=== PATIENT | female | born 1995 | race African-American/Black ===

== ENCOUNTER 2017-01-27 10:28 | Inpatient (IN) ==
[2017-01-27] MEDS: LACTATED RINGERS 1,000 ML IV SCH ×2 (10:48→13:05)
[2017-01-27] MEDS ORDERED: ONDANSETRON 4 MG/2 ML VIAL IV PRN (10:51)
[2017-01-27] MEDS ORDERED: MEPERIDINE 50 MG/1 ML VIAL IV PRN (11:03)
[2017-01-27 11:09] LABS: Basophils % 0.2 % (0.0-0.8); Eosinophils % 0.4 % (0.00-10.9); Hematocrit 40.7 VOL% (35.7-47.0); Hemoglobin 13.8 GM/DL (12.0-16.0); Immature Granulocytes % 0.5 %; Immature Granulocytes Absolute 0.04 #; Lymphocytes # 1.6 10*3/uL (1.4-4.0); Lymphocytes % 20.5 % (21.3-54.2); Mean Corpuscular HGB Conc 33.9 GM/DL (32-36); Mean Corpuscular Hemoglobin 26 PG (27-34); Mean Corpuscular Volume 77.8 FL (87-102); Mean Platelet Volume 10.3 FL (9.6-12.0); Monocytes # 0.4 10*3/uL (0.11-0.8); Monocytes % 4.7 % (1.7-12.7); Neutrophils # 5.9 10*3/uL (1.4-7.4); Neutrophils % 73.7 % (38.7-73.9); Platelet Count 264 T/CUMM (130-400); Red Blood Count 5.23 MC/CUMM (3.8-5.5); Red Cell Distribution Width 15.7 % (9.3-17.3)
[2017-01-27 11:26] LABS: INR 0.9; PT Patient Result 9.7 SECS; Partial Thromboplastin Time 33.5 SECS (0-40)
[2017-01-27 11:29] LABS: Alanine Aminotransferase 14 U/L (13-56); Albumin 2.8 G/DL (3.4-5.0); Alkaline Phosphatase 112 U/L (45-117); Aspartate Amino Transferase 13 U/L (0-37); Bilirubin,Total < 0.39 MG/DL (0.2-1.0); Blood Urea Nitrogen 4 MG/DL (7-18); Glucose 90 MG/DL (74-106); Potassium 3.8 MMOL/L (3.5-5.1); Sodium 136 MMOL/L (136-145); Total Protein 7.6 G/DL (6.4-8.3); Uric Acid 3.9 MG/DL (2.6-6.0)
[2017-01-27] MEDS ORDERED: OXYTOCIN/LR 20 UNIT/1,000 ML BAG IV SCH (12:00)
[2017-01-27] MEDS ORDERED: BUTORPHANOL 1 MG/ML VIAL ONE (13:13)
[2017-01-27] MEDS ORDERED: LIDOCAINE 1% 50 ML VIAL ONE (13:13)
[2017-01-27] MEDS ORDERED: miSOPROStol 200 MCG TABLET ONE (13:14)
--- NOTE | 2017-01-27 13:54 | OB/GYN History & Physical ---
History of Present Illness Chief complaint: labor History of present illness: Ms. White is a 21 year old female presented this morning to L&D with complaints of labor and rupture. 5 cm with rupture and meconium at admission. complicated with trichomonas. No other medical issues or surgeries. Previous delivery uncomplicated. R/B/A to delivery reviewed. Pt willing to proceed. 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 - Constitutional Vitals: Vital Signs Pulse Resp BP Pulse Ox 01/27/17 10:47 120 H 19 141/104 99 General appearance: normal weight - Head Head exam: Present: normal inspection - Eye Eye exam: Present: EOMI Pupils: Present: CHELA - Respiratory Respiratory exam: Present: clear to auscultation bilaterally - Cardiovascular Cardiovascular exam: Present: regular rate and rhythm - GI/Abdominal GI/Abdominal exam: Present: soft, other (FhTs reassuring) Assessment and Plan (1) 39 weeks gestation of Status: Acute Assessment and plan: Anticipate Current Visit: Yes Results - Labs CBC & BMP: 01/27/17 10:55 01/27/17 10:45
--- NOTE | 2017-01-27 13:59 | Event Note ---
DELIVERY NOTE of female infant in cephalic presentation with no anesthesia. Admitted 5 cm at 1100. Weight pending. APGARS of Spontaneous intact placenta. EBL 300 cc. Repair of midline 2nd degree laceration with 3.0 vicryl NICU present. Mom and baby doing well.
[2017-01-27] MEDS ORDERED: ACETAMINOPHEN 325 MG TABLET PO PRN (17:17)
[2017-01-27] MEDS ORDERED: MEASLES/MUMPS/RUBELLA VACCINE 0.5 ML VIAL SUBCUT ONE (17:17)
[2017-01-27] MEDS ORDERED: DIPH/TET/ACEL PERT BOOSTER VACCINE 0.5 ML VIAL IM ONE (17:17)
[2017-01-27] MEDS ORDERED: RHO(D) IMMUNE GLOBULIN 300 MCG SYRINGE IM ONE (17:17)
[2017-01-27] MEDS ORDERED: LANOLIN 50% CREAM 0.3 OZ TUBE TOP PRN (17:17)
[2017-01-27] MEDS ORDERED: WITCH HAZEL PADS 100/JAR TOP PRN (17:17)
[2017-01-27] MEDS ORDERED: BISACODYL 10 MG SUPP RECTAL PRN (17:17)
[2017-01-27] MEDS ORDERED: HYDROCORTISONE 2.5% RECTAL CREAM 30 GM TUBE TOP PRN (17:17)
[2017-01-27] MEDS ORDERED: BENZOCAINE 20%/MENTHOL 0.5% SPRAY 56 GM CAN TOP PRN (17:17)
[2017-01-27] MEDS: IBUPROFEN 800 MG TABLET PO PRN (18:05)
[2017-01-27] MEDS: DOCUSATE SODIUM 100 MG CAPSULE PO SCH (22:03)
[2017-01-28 06:11] LABS: Basophils % 0.2 % (0.0-0.8); Eosinophils # 0.1 10*3/uL (0.0-0.87); Eosinophils % 0.5 % (0.00-10.9); Hematocrit 35.4 VOL% (35.7-47.0); Hemoglobin 12.2 GM/DL (12.0-16.0); Immature Granulocytes % 0.6 %; Immature Granulocytes Absolute 0.06 #; Lymphocytes # 1.8 10*3/uL (1.4-4.0); Lymphocytes % 16.7 % (21.3-54.2); Mean Corpuscular HGB Conc 34.5 GM/DL (32-36); Mean Corpuscular Hemoglobin 27 PG (27-34); Mean Platelet Volume 10.6 FL (9.6-12.0); Monocytes # 0.5 10*3/uL (0.11-0.8); Monocytes % 5.1 % (1.7-12.7); Neutrophils # 8.2 10*3/uL (1.4-7.4); Neutrophils % 76.9 % (38.7-73.9); Platelet Count 259 T/CUMM (130-400); Red Blood Count 4.54 MC/CUMM (3.8-5.5); Red Cell Distribution Width 15.6 % (9.3-17.3); White Blood Count 10.7 T/CUMM (4-12)
[2017-01-28] MEDS ORDERED: FAMOTIDINE 20 MG TABLET PO ONE (06:58)
[2017-01-28] MEDS ORDERED: DIAZEPAM 5 MG TABLET PO ONE (06:58)
[2017-01-28] MEDS ORDERED: METOCLOPRAMIDE 10 MG TABLET PO ONE (06:59)
[2017-01-28] MEDS ORDERED: LACTATED RINGERS 1,000 ML IV SCH (07:30)
--- NOTE | 2017-01-28 08:21 | OB/GYN Progress Note ---
Assessment and Plan (1) 39 weeks gestation of Status: Acute Assessment and plan: Anticipate Current Visit: Yes (2) Encounter for full-term uncomplicated delivery Status: Acute Assessment and plan: PPD #1 s/p Doing well Plan PPTL this am Current Visit: Yes [employer] - PN: Subj Interval history: Pt feels good this morning. R/B/A to surgery reviewed with patient, Pt verbalized understanding and is willing to proceed. Exam [employer] - Constitutional Vitals: Vital Signs Temp Pulse Pulse Resp BP BP Pulse Ox 01/28/17 07:42 18 01/28/17 07:22 97.3 F L 84 20 131/92 97 01/28/17 04:00 96.9 F L 93 H 20 130/77 98 01/28/17 03:00 20 01/28/17 02:00 20 01/28/17 01:00 20 01/28/17 00:00 96.6 F L 79 16 117/72 99 01/27/17 19:15 97.3 F L 103 H 22 136/72 97 01/27/17 17:10 97.7 F 105 H 20 130/68 98 01/27/17 16:10 97.3 F L 102 H 20 141/80 98 01/27/17 13:00 97.3 F L 01/27/17 12:00 97.3 F L 90 20 143/76 01/27/17 10:47 120 H 19 141/104 99 General appearance: no acute distress - Head Head exam: Present: normocephalic - Eye Eye exam: Present: EOMI Pupils: Present: CHELA - GI/Abdominal GI/Abdominal exam: Present: soft. Absent: tenderness Results - Labs CBC & BMP: 01/28/17 05:49 01/27/17 10:45
[2017-01-28] MEDS: DOCUSATE SODIUM 100 MG CAPSULE PO SCH ×2 (09:03→20:18)
[2017-01-28] MEDS ORDERED: LIDOCAINE 1%/EPI INJ 20 ML VIAL ONE (09:21)
[2017-01-28] MEDS ORDERED: TISSUE ADHESIVE 1 EACH APPLICATOR TOP ONE (10:05)
[2017-01-28] MEDS ORDERED: SUGAMMADEX 200 MG/2 ML VIAL IV ONE (10:09)
[2017-01-28] MEDS ORDERED: ONDANSETRON 4 MG/2 ML VIAL ONE ×2 (10:29→10:38)
[2017-01-28] MEDS ORDERED: HYDROmorphone 2 MG/1 ML VIAL ONE (10:29)
[2017-01-28] MEDS: HYDROmorphone 2 MG/1 ML VIAL IV PRN ×2 (10:30→10:35)
[2017-01-28] MEDS ORDERED: ONDANSETRON 4 MG/2 ML VIAL IV PRN (10:34)
[2017-01-28] MEDS ORDERED: PROPOFOL 200 MG/20 ML VIAL IV ONE (10:37)
[2017-01-28] MEDS ORDERED: fentaNYL 100 MCG/2 ML VIAL ONE (10:38)
[2017-01-28] MEDS ORDERED: ACETAMINOPHEN 1,000 MG/100 ML VIAL IV ONE (10:38)
[2017-01-28] MEDS ORDERED: ROCURONIUM 100 MG/10 ML VIAL IV ONE (10:38)
[2017-01-28] MEDS ORDERED: GLYCOPYRROLATE 0.4 MG/2 ML VIAL ONE (10:38)
[2017-01-28] MEDS ORDERED: SEVOFLURANE 1 UNIT/15 MINUTE INH ONE (10:38)
[2017-01-28] MEDS ORDERED: KETOROLAC 30 MG/1 ML VIAL ONE (10:38)
--- NOTE | 2017-01-28 10:56 | Anesthesia Post-Op ---
Anesthesia Post OP - Post Ansesthetic Evaluation Patient seen in post op: Yes Resp: within normal limits CV: within normal limits Mental: within normal limits Temp: within normal limits [id number]: within normal limits Nausea and Vomiting: within normal limits Pain: within normal limits
--- NOTE | 2017-01-28 14:04 | Operative Note ---
Date of procedure: 01/28/17 Pre-op diagnosis: Undesired fertility Post-op diagnosis: same Procedure: TUBAL LIGATION Pt taken to the OR. Transferred from cart to the exam table. Put to sleep with GETA. Prepped and draped in sterile fashion in dorsal supine position. Sharp catheter in bladder. 10 cc of plain lidocaine injected along planned incision line beneath umbilicus. Waited 5 mintues for block to set up. Lauryn clamps placed and 4 cm incision made below umbilicus. Lauryn clamps then replaced superiorly and inferiorly and Cathryn clamp used to open the space down to the fascia. Fascia visualized and grasped with Lauryn clamps in transverse fashion. Matos scissors used to open fascia. Incision extended with bluntly with Cathryn clamp. Pt placed in Trendelenburg position. 0 vicryl on UR 6 placed on the left corner of the fascial incision and then set to the side. Army/Berwick retractors placed in the incision and patient tilted to the left. Most mini lap placed to pack omentum in the upper abdomen. Right tube visualized and grasped with Babbock clamp. Second Babbcock used to bring up the distal end of the tube for confirmation. Once confirmed, 3.0 plain on a needled placed thru the mesosalpinx. Tube ligated. Second free tie of the same suture placed around the Knuckle of tube. Metzenbaum scissors used to remove segment of tube. Just superior to cut segment, Cathryn placed and tube fulgurated. Similar procedure on the opposite side. Pt rotated to the left. Tube properly identified and ligated x 2, then fulgurated. Hemostasis noted bilaterally and procedure concluded. Fascia closed with the stitch that was placed at the beginning. Skin closed with 4.0 monocryl suture. Sponge lap and needle count correct x 2. Pt taken to recovery in stable condition. Anesthesia: GETA Surgeon / Physician: Ciera Barkley Estimated blood loss: minimal Specimens: other (Segment of both fallopian tubes) Condition: stable Disposition: floor Results - Labs CBC & BMP: 01/28/17 05:49 01/27/17 10:45
[2017-01-28] MEDS: IBUPROFEN 800 MG TABLET PO PRN (16:32)
[2017-01-28] MEDS ORDERED: SIMETHICONE CHEW 80 MG TABLET PO PRN (19:53)
[2017-01-29] MEDS: IBUPROFEN 800 MG TABLET PO PRN (03:19)
[2017-01-29 07:15] VITALS: BP 129/76
[2017-01-29] MEDS ORDERED: PHENOL 1.4% THROAT SPRAY 177 ML BOTTLE PO PRN (08:11)
--- NOTE | 2017-01-29 08:14 | Discharge Summary ---
Hospital Course - Hospital Course Hospital Course: Pt has had a routine pp course. Underwent tubal ligation yesterday without incident. Well to go home today. Diagnosis - Discharge Diagnosis (1) 39 weeks gestation of Status: Acute (2) Encounter for full-term uncomplicated delivery Status: Acute (3) Unwanted fertility Status: Acute Specialty Discharge - Follow Up or Referrals Follow up with: Ciera Barkley MD [Physician] - Discharge Plan - Discharge Data Disposition: Disch To Home/Self Care Condition at Discharge: Stable Discharge Diet: advance to your usual diet Activity: resume usual activities as tolerated Hygiene: may shower Weight Bearing at Discharge: full weight bearing Driving: no restrictions Contact your physician if you experience:: fever over 101, Redness or swelling - Discharge Medications New Docusate Sodium Cap [Colace Cap] 100 mg PO BID #30 capsule HYDROcodone/ACETAMIN 5-325 [Shidler 5-325] 2 tablet PO Q4H PRN #15 tablet PRN Reason: Pain Moderate (4-7) Ibuprofen Tab [Motrin Tab] 800 mg PO Q6H PRN #25 tablet PRN Reason: Pain Moderate (4-7) - Follow Up or Referral Follow Up: Ciera Barkley MD [Physician] - - Forms/Instructions Instructions: Depression (GEN), Perineal Care (DC), Laparoscopic Tubal Ligation (DC), Vaginal Delivery (DC), Bleeding (DC ) Exam - Constitutional Vitals: Period Temp Pulse Resp BP Sys/Patel Pulse Ox Last 24 Hr 96.8 F-98.4 F 74-104 18-20 120-152/72-98 95-100 General appearance: no acute distress - Head Head exam: Present: normal inspection, normocephalic - Eye Eye exam: Present: EOMI Pupils: Present: CHELA - GI/Abdominal GI/Abdominal exam: Present: soft. Absent: tenderness Discharge Results Procedures and tests throughout hospitalization: Pending Orders 01/28/17 09:30 Urinalysis Routine DS: Provider Date of admission: 01/27/17 10:51 Primary care physician: . No PCP Attending physician on admission: Ciera Barkley MD Consults: 01/27/17 17:17 Consult to Clay Puddler [CONS] Routine Consult Clay Puddler: Breast Feeding Discharging clinician: Ciera Barkley MD
[2017-01-29] MEDS: DOCUSATE SODIUM 100 MG CAPSULE PO SCH (09:02)
== END 2017-01-29 11:05 | disposition home or self-care (01) | DRG 541 ==
LOC: N.LDOUT 10:28 → N.LD 10:33 → N.OB 16:09
PROVIDERS: ADMIT Obstetrics & Gynecology; ATTEND Obstetrics & Gynecology